=== PATIENT | male | born 1980 | race Caucasian/White ===

== ENCOUNTER 2018-06-13 15:36 | Inpatient (IN) | payer MEDICAID ==
[~2018-06-13] VITALS: Ht 172.7 cm; Wt 89.5 kg
[2018-06-13 15:40] VITALS: Ht 172.7 cm; Wt 89.5 kg
[2018-06-13 16:16] LABS: BASOPHIL % 0.1 % (0-2); PLATELET COUNT 330 x10^3mcL (130-400); RED CELL DISTRIBUTION WIDTH 13.3 % (11.5-14.5)
[2018-06-13 17:14] LABS: CALCIUM 9.3 mg/dL (8.5-10.1); CARBON DIOXIDE 26.1 mmol/L (21-32); CHLORIDE SERUM 99 mmol/L (98-107); CREATININE SERUM 1.2 mg/dL (0.7-1.3); GFR1 > 60 mL/min; GLUCOSE SERUM 127 mg/dL (74-106); POTASSIUM SERUM 3.6 mmol/L (3.5-5.1); SODIUM SERUM 135 mmol/L (136-145)
[2018-06-13 17:19] LABS: ALBUMIN 4.1 g/dL (3.4-5.0); ALKALINE PHOSPHATASE 68 U/L (46-116); ALT/SGPT 37 U/L (16-63); AST/SGOT 14 U/L (15-37); LIPASE 172 IU/L (73-393); TOTAL PROTEIN, SERUM 8.1 g/dL (6.4-8.2)
[2018-06-13 18:07] LABS: microscopic required? NO
[2018-06-13 18:17] LABS: urine erythrocyte NEGATIVE (NEGATIVE)
[2018-06-13 18:26] LABS: AMPHETAMINE QUAL UR NONE DETECTED (See below)
[2018-06-13 18:49] LABS: MAGNESIUM 1.8 mg/dL (1.8-2.4); PHOSPHOROUS 2.8 mg/dL (2.5-4.9)
[2018-06-13 18:52] LABS: CHOLESTEROL/HDL RATIO 2.6
[2018-06-13 18:55] LABS: T3 TOTAL 1.07 ng/mL
[2018-06-13 18:58] LABS: FREE T4 0.95 ng/dL (0.76-1.46); FREE THYROXINE INDEX 2.4 ug/dL (1.4-4.5); T4(THYROXINE) 7.3 ug/dL (4.7-13.3)
[2018-06-13 19:06] VITALS: BP 110/70
[2018-06-13 20:56] VITALS: BP 108/57
[2018-06-14 05:07] VITALS: BP 107/70
[2018-06-14 06:03] LABS: BASOPHIL % 0.3 % (0-2); PLATELET COUNT 248 x10^3mcL (130-400); RED CELL DISTRIBUTION WIDTH 13.6 % (11.5-14.5)
[2018-06-14 06:28] LABS: CARBON DIOXIDE 25.6 mmol/L (21-32); CHLORIDE SERUM 104 mmol/L (98-107); CREATININE SERUM 1.1 mg/dL (0.7-1.3); GFR1 > 60 mL/min; GLUCOSE SERUM 111 mg/dL (74-106); POTASSIUM SERUM 3.5 mmol/L (3.5-5.1); SODIUM SERUM 137 mmol/L (136-145)
[2018-06-14 10:31] VITALS: BP 107/74
[2018-06-14 16:23] VITALS: BP 131/85
[2018-06-14 21:15] VITALS: BP 112/79
[2018-06-15 05:14] VITALS: BP 105/74
[2018-06-15 06:34] LABS: CALCIUM 8.2 mg/dL (8.5-10.1); CARBON DIOXIDE 30.3 mmol/L (21-32); CHLORIDE SERUM 102 mmol/L (98-107); GFR1 > 60 mL/min; GLUCOSE SERUM 102 mg/dL (74-106); PHOSPHOROUS 2.4 mg/dL (2.5-4.9); POTASSIUM SERUM 3.3 mmol/L (3.5-5.1); SODIUM SERUM 137 mmol/L (136-145)
[2018-06-15 06:35] LABS: BASOPHIL % 0.3 % (0-2); PLATELET COUNT 240 x10^3mcL (130-400); RED CELL DISTRIBUTION WIDTH 13.7 % (11.5-14.5)
[2018-06-15 10:45] VITALS: BP 134/89
[2018-06-15 12:44] VITALS: BP 111/80
[2018-06-15 16:57] VITALS: BP 132/89
[2018-06-15 20:43] VITALS: BP 114/76
[2018-06-16 05:36] VITALS: BP 106/70
[2018-06-16 09:41] VITALS: BP 115/76
[2018-06-16 13:58] VITALS: BP 120/70
[2018-06-16 14:38] VITALS: BP 120/70
== END 2018-06-16 15:48 | disposition home or self-care (01) | DRG 710 ==
LOC: ED 15:36 → DU 17:52 → MU 17:52 → DU 18:43 → MU 19:01 → DU 06-14 18:10
PROVIDERS: Emergency Medicine; Internal Medicine; Surgery
PROC: 0FT44ZZ Resection of Gallbladder, Percutaneous Endoscopic Approach (ICD-10-PCS; principal; 2018-06-15 07:30)
DX: A41.9 Sepsis, unspecified organism (principal); E87.2 Acidosis; K82.1 Hydrops of gallbladder; K80.00 Calculus of gallbladder with acute cholecystitis without obstruction; R55 Syncope and collapse; R65.20 Severe sepsis without septic shock; E87.6 Hypokalemia; D64.9 Anemia, unspecified; F12.10 Cannabis abuse, uncomplicated; Z68.29 Body mass index [BMI] 29.0-29.9, adult
CPT/HCPCS: 83880; 84439; 94150; J0330; J1170; J1644; J1885; J2250; J2270; J2405; J2543; J2704; J2710; J3010; J3490; J7030; J7120; Q0092